=== PATIENT | female | born 2000 | race Caucasian/White ===

== ENCOUNTER 2023-08-05 09:55 | Outpatient (AMB) | payer OTHER, SELFPAY ==
--- NOTE | 2023-08-05 12:04 | MHC.OFFWIV ---
Intake Vital Signs 08/05/23 12:07 Height 5 ft 4 in Weight 159 lb BMI 27.3 BP 120/70 Blood Pressure Location Rt brachial Position Sitting Pulse 86 Pulse Source Pulse Oximeter Temp 97.4 F Temp Source Temporal Artery Scan Pulse Oximetry (%) 98 Oxygen Delivery Method Room Air Intake Visit Reasons: EST/cough/[phone] Intake Note: pt is here today for cough it started 3-4 days ago Patient Tobacco Use Status: Never used Tobacco Allergies No Known Allergies Allergy (Verified 08/05/23 12:24) Medication List - Last Reconciled 08/05/23 by Nai Mcdonald, TRAVELING ENGINEER, HEAD WAITER/[employer]ESS [employer] prenat.vits,shahida,fej-hpyg-hvlcy tabs PO DAILY Do you need a note to return to daycare/school/sports/work: Yes HPI EST/cough/[phone] HPI Details Patient presents with to the walk-in clinic today for 4 days of nonproductive cough. The patient denies fevers, chills, body aches, fatigue, headache, sore throat, vomiting or diarrhea. She reports limited exposure to a co-worker who was coughing last week, otherwise denies any known sick contacts. Of note patient is 20 weeks , taking vitamin as prescribed. She has no concerns with the today [facility] Social History Patient Tobacco Use Status: Never used Tobacco Review of Systems Const All systems reviewed & are unremarkable except as noted in HPI and below Physical Exam Vital Signs: Last Vital Signs Temp 97.4 F 08/05/23 12:07 Pulse 86 08/05/23 12:07 BP 120/70 08/05/23 12:07 Pulse Ox 98 08/05/23 12:07 Oxygen Delivery Method Room Air 08/05/23 12:07 BMI result Body Mass Index 27.3 General: awake, alert, oriented. Answers questions appropriately. Fully engaged in examination. Skin: warm, dry, intact Cardiac: External chest normal in appearance. MS: No obvious swelling or deformities. Neurological: Oriented to person, place, time and situation. Thought process intact. Psychiatric: Appropriate mood and affect. Good judgment and insight. HEENT Head: Yes normal to inspection Ears: TM's normal bilaterally Mouth: Normal oral and palatal mucosa present Throat: Yes posterior oropharynx normal and Yes uvula midline Resp Effort & Inspection: normal respiratory effort and able to speak in complete sentences Auscultation: clear to auscultation bilaterally Assessment & Plan Assessment & Plan (1) URI with cough and congestion: Code(s): J06.9 - Acute upper respiratory infection, unspecified Plan History and physical exam consistent with viral URI. ABX not warranted at this time. Drink plenty of fluids, get plenty of rest Work note provided to patient for today and tomorrow. Follow up with pcp or return to clinic for any new or worsening symptoms. Coding Level of Care Code Est Pt Level 3 (38345) Diagnoses URI with cough and congestion J06.9
[2023-08-05 12:07] VITALS: BP 120/70; PULSE 86; TEMP 36.3; O2SAT 98; BMI 27.3
== END 2023-08-05 12:41 | disposition home or self-care (01) ==
PROVIDERS: PCP Internal Medicine; Visit Provider Registered Nurse Emergency
DX: J06.9 Acute upper respiratory infection, unspecified (principal)
CPT/HCPCS: 99212